=== PATIENT | male | born 2005 | race Caucasian/White ===

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

== ENCOUNTER → 2025-04-06 08:07 | Outpatient (REF) | payer BC, OTHER, SELFPAY | LOC: RAD 08:07 | PROVIDERS: ATTENDING PHYSICIAN Internal Medicine Gastroenterology; FAMILY PHYSICIAN Family Medicine | DX: R11.0 Nausea (principal); R53.0 Neoplastic (malignant) related fatigue; R10.13 Epigastric pain | CPT/HCPCS: 78264; A9541 ==

== ENCOUNTER 2025-06-27 16:20 | Emergency (ER) | payer BC, OTHER, SELFPAY ==
[2025-06-27 16:23] VITALS: BP 126/78
[2025-06-27 16:50] VITALS: BMI 21.5
[2025-06-27 16:56] VITALS: BP 129/67
[2025-06-27 16:56] LABS: COVID-19 Antigen Negative (Negative)
[2025-06-27 17:00] VITALS: BP 122/82
[2025-06-27] MEDS: MOTRIN 600 MG PO (17:09)
--- NOTE | 2025-06-27 17:13 | ED.GENMED ---
History of Present Illness
General
Chief Complaint: Cold/Flu/URI Symptoms
Time Seen by Provider: 06/27/25 16:56
History of Present Illness
History of Present Illness:
Patient presents to the emergency department with sore throat cough congestion, fevers. Symptoms have been intermittent and present over the past 2 to 3 weeks. Reports a history of recurrent tonsillitis. Complains of pain on the right side of his
throat and ear on the right. Denies neck stiffness. Denies rash.
Phy Exam
Physical Exam
Physical Exam:
GENERAL APPEARANCE: No acute distress, well developed, well nourished
EYES lids/conjunctiva normal
EARS/NOSE/THROAT there is tonsillar hypertrophy on the right and erythema without exudates. Uvula midline mucous membranes moist
HEAD/NECK Normocephalic atraumatic, neck is supple. No cervical lymphadenopathy, no JVD
RESPIRATORY respiratory effort normal, speaks in full sentences, no accessory muscle use. Lungs clear to auscultation without rhonchi, wheezes, rales
CARDIAC Regular rate and rhythm, no edema.
ABDOMINAL Soft, ND/NT.
MUSCLES/EXTREMITIES No abnormal range of motion, no swelling.
SKIN Warm, pink and dry. No rashes
NEUROLOGICAL Speech is clear and appropriate. Normal level of consciousness. 5/5 strength in all extremities.
PSYCH Normal mood and affect. Judgement/competence is appropriate
Sepsis
Sepsis Screening
Sepsis Assessment: Sepsis Ruled Out
Sepsis Screen
Sepsis Screen: Sepsis Ruled Out
Date: 06/27/25
Time: 17:56
Course
Orders/Labs/Results
Orders:
Orders
06/27/25 16:30
COVID-19 Antigen Urgent
Source: Nasal Swab
Influenza A+B Rapid Molecular Urgent
FE Source: Nasal Swab
Specimen Description:
06/27/25 17:06
Ibuprofen [Motrin] 600 mg PO NOW STA
Vital Signs
Initial and Last Documented VS:
Initial Vital Signs
Temp Pulse Resp BP Pulse Ox
100.8 F H 119 16 126/78 98
06/27/25 16:23 06/27/25 16:23 06/27/25 16:23 06/27/25 16:23 06/27/25 16:23
Last Documented Vital Signs
Temp Pulse Resp BP Pulse Ox
99.9 F 110 18 122/82 96
06/27/25 17:00 06/27/25 17:01 06/27/25 17:01 06/27/25 17:00 06/27/25 17:30
*Pulse Oximetry
SaO2: 100
Oxygen Mode of Delivery: Room air
Patient hypoxic: no
*Critical Care Note
Total Time (30-74mins, 75-104mins- exclusive of procedures): Not Applicable
ED Attending Note
ED Attending Note
ED Attending Note:
Patient with febrile illness and right-sided tonsillitis. Viral panels are negative. Given history of recurrent tonsillitis and prolonged course, will treat for strep clinically. No evidence of suppurative complications
-
Portions of this chart may have been created with voice recognition software.� Occasional wrong word or��sound alike� substitutions may have occurred due to the inherent limitations of voice recognition software.
Discharge Plan
Departure
Patient Disposition: Home (Routine Discharge)
Date of Disposition: 06/27/25
Time of Disposition: 17:15
Patient with high blood pressure during this ER visit?: No
Discharge Problem:
Acute tonsillitis
Instructions: Sore Throat - Adult
Prescriptions:
New
amoxicillin 500 mg capsule
500 mg PO BID Qty: 20 0RF
Stand Alone Forms: Return to Work
Interventions
Interventions:
*Risk Screen - Suicide Last Done: 06/27/25 16:50
*General Assessment Last Done: 06/27/25 16:50
*Neglect/Abuse Screening Last Done: 06/27/25 16:50
*ED COVID-19 Vaccine History Last Done: 06/27/25 16:50
*ED Influenza Vaccine History Last Done: 06/27/25 16:50
[facility] Fall Risk Assessment Tool Last Done: 06/27/25 16:50
ED- Pulmonary Assessment Last Done: 06/27/25 16:50
Discharge Date and Time
Print Language: [place] ISLAND[place]
== END 2025-06-27 17:40 | disposition home or self-care (01) ==
LOC: EMR 16:20
PROVIDERS: Student in an Organized Health Care Education/Training Program; EMERGENCY PHYSICIAN Emergency Medicine; FAMILY PHYSICIAN Family Medicine
DX: J03.90 Acute tonsillitis, unspecified (principal); Z11.52 Encounter for screening for COVID-19
CPT/HCPCS: 99283; 87502; 87811

== ENCOUNTER 2025-06-29 10:02 | Emergency (ER) | payer BC, OTHER, SELFPAY ==
[2025-06-29 10:12] VITALS: BP 125/78
--- NOTE | 2025-06-29 11:23 | ED.GENMED ---
History of Present Illness
General
Chief Complaint: Fever
Time Seen by Provider: 06/29/25 11:23
History of Present Illness
History of Present Illness:
FOCUSED PAST MEDICAL HISTORY
- GERD
REVIEW OF OLD RECORDS
- I reviewed records, flu test from 06/27/2025 was negative
- He was placed on amoxicillin for presumed strep pharyngitis
- He states his pharmacy was closed and did not take any amoxicillin over the last couple of days
Note:
CHIEF COMPLAINT(S)
Sore throat, fever, and difficulty eating.
HISTORY OF PRESENT ILLNESS
The patient is a 19-year-old male who presented with a sore throat, fever, and difficulty eating. The patient was previously seen in the emergency room two days ago and was started on antibiotics. No strep testing was performed at that time, as it
was presumed to potentially be a strep throat infection. The patient has a history of tonsillectomy performed during childhood. He reports a fever reaching 104�F today, alongside ongoing tonsillar swelling and increased discomfort, as evidenced by
'it does look like its bulging a little bit here.' He also described the fever fluctuating but generally returning. The patient reports limited oral intake due to the discomfort.
PAST SURGICAL HISTORY
Tonsillectomy performed when he was 2 or 3 years old
PHYSICAL EXAM
General: Patient appears distressed due to discomfort.
Skin: Warm to touch, suggestive of fever.
Ear, Nose, and Throat: There is no trismus, some unilateral swelling noted at the right side in the tonsillar region with exudate, no uvular edema
Cardiovascular: Good perfusion, borderline tachycardic
Vital Signs: Elevated heart rate observed during the examination.
PROBLEM LIST
Acute Problems:
- Acute pharyngitis with tonsillitis
- Fever
PLAN
- Administer intravenous fluids to address dehydration due to reduced oral intake.
- Administer Toradol for pain management.
- Administer a steroid to reduce inflammation.
- Consider a picture of the patients throat for consultation or documentation.
- Continue monitoring of vital signs and clinical status.
DIFFERENTIAL DIAGNOSIS
The Differential Diagnosis includes, in no particular order and is not limited to:
1. Acute bacterial pharyngitis (possible unresolved strep throat).
2. Viral pharyngitis.
3. Peritonsillar abscess.
4. Infectious mononucleosis.
5. Acute sinusitis with post-nasal drip.
6. Epiglottitis.
7. Influenza.
8. Lemierres syndrome.
9. Scarlet fever.
10. Retropharyngeal abscess.
SUMMARY OF ENCOUNTER
The patient, a 19-year-old male, presented to the emergency department with a sore throat, fever, and difficulty eating. He was previously seen in the emergency room and started on antibiotics, but his condition persisted with fever up to 104�F and
notable tonsillar swelling. A CT scan was performed to rule out any surgical necessity, with a preliminary review indicating no need for immediate intervention. A strep test conducted today returned negative, suggesting the possibility of a viral
illness rather than bacterial. The patients heart rate has been borderline high. Intravenous fluids and clindamycin, a stronger antibiotic, were administered to address symptoms. The patient reported slight improvement in symptoms following
treatment.
SOCIAL:
Resides at [facility] ('my parents kicked me out when I was younger').
ASSESSMENT
The patients symptoms and preliminary test results suggest acute pharyngitis with possible tonsillitis, which may be of viral origin, though a bacterial infection cannot be ruled out. The normal white blood cell count and non-indicative imaging
reduce the likelihood of a peritonsillar abscess or other acute bacterial processes.
EMERGENCY TREATMENTS ADMINISTERED
- Intravenous clindamycin
- Intravenous fluids
- IV Toradol
- IV Decadron x 1
MANAGEMENT OF THE PATIENTS CARE WAS DISCUSSED WITH
Discussion was held with Dr. Dawson Burciaga, the on-call ENT specialist, to consider whether a peritonsillar abscess might be present and for potential follow-up care.
PLAN
- Monitor for official radiology report.
- Continue IV fluid administration.
- Recommend follow-up with Dr. Dawson Burciaga, ENT.
- Consider prescribing amoxicillin upon discharge for extended oral antibiotic therapy at home.
INDEPENDENT REVIEW OF LABS AND INTERPRETATION OF TESTS
My independent review of CBC shows a normal white blood cell count.
My independent review of the CT scan shows no indications of a need for surgical intervention, and no signs suggestive of a peritonsillar abscess.
PATIENT EDUCATION AND COUNSELING
The patient was advised about the possibility of either a viral or unresolved bacterial infection. Information about continuing symptoms and the importance of follow-up care with an ENT specialist was provided. Possible reasons were given for
symptom persistence despite negative strep tests and current antibiotic therapy.
FOLLOW-UP INSTRUCTIONS
The patient is advised to follow up with Dr. Dawson Burciaga, ENT specialist, as discussed, for further evaluation and management.
MEDICATION RECONCILIATION
- Intravenous clindamycin administered during visit.
- Prescription recommended for amoxicillin for oral antibiotic therapy contingent on pharmacy availability.
MEDICAL DECISION MAKING
- Number and Complexity of Problems Addressed: Acute pharyngitis with potential tonsillitis, normal CBC ruling out acute bacterial processes, negative strep test. Differential diagnosis considered: acute bacterial pharyngitis, viral pharyngitis,
peritonsillar abscess, infectious mononucleosis, and others.
- Data:
Category 1: Independent review of CBC and CT scan.
Category 3: Discussion with Dr. Dawson Burciaga, ENT specialist, regarding management of potential abscess.
- Risk:
Prescription medication was prescribed with ongoing monitoring recommended. Decision to not perform further invasive procedures like lumbar puncture due to reassuring lab and imaging results.
DIAGNOSIS
- Acute pharyngitis, potentially viral or unresolved bacterial infection (ICD-10: J02.9)
RADIOLOGY
- CT neck obtained which shows no abscess
LABS
- White count normal, chemistries unremarkable
UPDATE
- I discussed case with Dr. Burciaga who has low suspicion for abscess given the lack of trismus however we will obtain CT imaging for further evaluation.
- WBC normal
- Currently afebrile in the emergency department.
- Was initially tachycardic but is improving
- Heart rate overall improved compared to arrival, repeat temperature remains afebrile on my examination at 3 PM was 98.7 Fahrenheit.
- Normal chin to chest testing with no meningeal signs.
- Appropriate/normal mental status.
- He says that he will start his amoxicillin now that his pharmacy is open
- I filled out paperwork for [facility]
Phy Exam
Physical Exam
Physical Exam:
See HPI
Course
Orders/Labs/Results
Orders:
Orders
06/29/25 11:48
CMP [Comprehensive Metabolic Panel] Urgent
Complete Blood Count/With Diff Urgent
Rapid Strep Group A Urgent
FE Source: Throat/Pharynx
Specimen Description:
Date Specimen was Collected: 06/29/25
Time Specimen was Collected: 11:46
06/29/25 11:49
0.9% Sodium Chloride 1000 ml [Nss] 1,000 ml IV BOLUS
Clindamycin Phosphate [Cleocin] 300 mg 0.9% Sodium Chloride [Nss] 50 ml IV NOW
Ketorolac [Toradol] 15 mg IV NOW STA
06/29/25 11:54
Clindamycin Phosphate [Cleocin] 300 mg 0.9% Sodium Chloride [Nss] 50 ml IV NOW
Dexamethasone Sod Phosphate [Decadron] 10 mg IV NOW STA
06/29/25 11:57
CT Neck With Iv Contrast Urgent
Comment:
Reason For Exam: R pain; ?GRILL CHEF; high fevers
06/29/25 12:17
Monotest Urgent
06/29/25 14:54
0.9% Sodium Chloride 1000 ml [Nss] 1,000 ml IV BOLUS
Abnormal Lab Results
06/29/25
11:48
MCHC 32.3 L g/dL
(33.0-37.0)
Absolute Lymphs (auto) 1.0 L 10^3/uL
(1.2-3.4)
Absolute Monos (auto) 1.1 H 10^3/uL
(0.1-0.6)
Lymphocytes % 13.2 L %
(20.5-51.1)
Monocytes % 14.4 H %
(1.7-9.3)
Sodium 134 L mmol/L
(135-145)
Chloride 97 L mmol/L
(98-107)
06/29/25 11:48
06/29/25 11:48
Vital Signs
Initial and Last Documented VS:
Initial Vital Signs
Temp Pulse Resp BP Pulse Ox
37.6 C 125 18 125/78 95
06/29/25 10:12 06/29/25 10:12 06/29/25 10:12 06/29/25 10:12 06/29/25 10:12
Last Documented Vital Signs
Temp Pulse Resp BP Pulse Ox
37.1 C 94 13 98/71 99
06/29/25 12:18 06/29/25 14:33 06/29/25 14:33 06/29/25 14:00 06/29/25 14:00
*Pulse Oximetry
SaO2: 95
Oxygen Mode of Delivery: Room air
Patient hypoxic: no
*Critical Care Note
Total Time (30-74mins, 75-104mins- exclusive of procedures): Not Applicable
ED Attending Note
-
Portions of this chart may have been created with voice recognition software.� Occasional wrong word or��sound alike� substitutions may have occurred due to the inherent limitations of voice recognition software.
Discharge Plan
Departure
Patient Disposition: Home (Routine Discharge)
Date of Disposition: 06/29/25
Time of Disposition: 15:20
Patient with high blood pressure during this ER visit?: Yes
Discharge Problem:
Pharyngitis, acute
Instructions: Sore throat in adults
Prescriptions:
No Action
fexofenadine 180 mg Tablet
180 mg PO DAILY
omeprazole 40 mg Capsule,Delayed Release(Dr/Ec)
40 mg PO DAILY
nortriptyline 25 mg Capsule
25 mg PO HS
ferrous sulfate 325 mg (65 mg iron) Tablet
325 mg PO BID
albuterol sulfate 90 mcg/actuation Hfa Aerosol Inhaler
2 puff INHALATION Q6H PRN (Reason: shortness of breath)
ibuprofen 200 mg Tablet
400 mg PO Q6H PRN (Reason: mild pain)
Referrals:
Danielito Sawyer DO [Family Provider, Family Practice]
Activity Restrictions/Additional Instructions:
Start the antibiotic as previously prescribed. Your temperature here is normal checked twice. Your heart rate was fast initially but then repeat heart rate is improved into the 90s. Your blood pressure is slightly low and we gave you 2 L of
fluid. Rapid strep test is negative. Since you did have some swelling more on the right side I talked things over with the on-call ENT doctor. I recommend that you follow-up with Dr. Burciaga. The CAT scan however shows no sign of a peritonsillar
abscess. Return if worse or other concerns. Based on examination, I see no sign of meningitis.
Interventions
Interventions:
*Risk Screen - Suicide Last Done: 06/29/25 10:12
*General Assessment Last Done: 06/29/25 12:19
*Neglect/Abuse Screening Last Done: 06/29/25 12:19
*ED COVID-19 Vaccine History Last Done: 06/29/25 12:19
*ED Influenza Vaccine History Last Done: 06/29/25 12:19
[facility] Risk Assessment Tool Last Done: 06/29/25 12:19
ED- Neurological Assessment Last Done: 06/29/25 12:19
ED-Skin Assessment Last Done: 06/29/25 12:19
Discharge Date and Time
Print Language: MALIAN
[2025-06-29 12:03] LABS: Hematocrit 48.3 % (39.0-52.0); Hemoglobin 15.6 g/dL (13.0-18.0); Mean Corp Hgb Conc. 32.3 g/dL (33.0-37.0); Mean Corpuscular Volume 84.4 fL (80.0-94.0); Nucleated Red Blood Cells % 0 % (-); Platelet Count 184 10^3/uL (130-400); Red Cell Dist. Width 13.0 % (11.5-14.5)
[2025-06-29] MEDS: NSS 1000 IV ×2 (12:05→14:55)
[2025-06-29] MEDS: DECADRON 10 MG IV (12:05)
[2025-06-29] MEDS: TORADOL 15 MG IV (12:05)
[2025-06-29 12:14] VITALS: BMI 19.6
[2025-06-29 12:15] VITALS: BP 96/64
[2025-06-29 12:29] LABS: ALT (SGPT) 28 U/L (0-50); AST (SGOT) 25 U/L (17-59); Albumin 4.6 g/dl (3.5-5.0); Alkaline Phosphatase 70 U/L (38-126); Blood Urea Nitrogen 14 mg/dl (9-20); Calcium 9.3 mg/dl (8.4-10.2); Carbon Dioxide 25 mmol/L (22-30); Chloride 97 mmol/L (98-107); Estimated Creatinine Clearance 119 ml/min; Glucose 87 mg/dl (70-99); Potassium 3.9 mmol/L (3.5-5.1); Sodium 134 mmol/L (135-145); Total Protein 8.1 g/dl (6.3-8.2); eGFR > 60.00
[2025-06-29 14:00] VITALS: BP 98/71
[2025-06-29] MEDS: CLEOCIN 52 MG IV ×2 (14:36→14:40)
[2025-06-29 16:00] VITALS: BP 105/74
[2025-06-29 16:29] VITALS: BP 101/74
== END 2025-06-29 16:39 | disposition home or self-care (01) ==
LOC: EMR 10:02
PROVIDERS: Student in an Organized Health Care Education/Training Program; EMERGENCY PHYSICIAN Emergency Medicine; FAMILY PHYSICIAN Family Medicine
DX: J02.9 Acute pharyngitis, unspecified (principal); E86.0 Dehydration; K21.9 Gastro-esophageal reflux disease without esophagitis
CPT/HCPCS: 99284; 96365; 96375 ×2; 96361 ×2; 70491; 80053; 85025; 86308; 87070; 87880; Q9967